=== PATIENT | female | born 1960 | race Caucasian/White ===

== ENCOUNTER → 2016-11-17 | Outpatient (CLI) | payer OTHER ==
[2016-11-12 12:53] VITALS: BP 125/67
[~2016-11-17] MED LIST: AMIO200T2 PO; APIX5TAB PO; ASPI-482 PO; ATOR10TA60 PO; BUME1TAB PO; DIGO125T PO; DILT180C29 PO; FURO40TA4 PO; HYDR12.58 PO; METO25TA4 PO; METO50TA29 PO; MULT1TAB52 PO; OMEG-57 PO; POTA10TA5 PO; PROAIR HFA8.5 GM INH; RIVA20TA2 PO
--- NOTE | 2016-11-18 15:31 | SLEEP ---
DATE OF STUDY: 11/17/2016 PRIMARY CARE PHYSICIAN: Dr. Carol Gutiérrez. REFERRING PHYSICIAN: Dr. Whitmore. Ms. Guerrero is 56 years old who weighs 290 pounds with a BMI of 50. The patient's [place] score was 8. The patient underwent a split night study at [facility]. During the night study, the patient spent 424 minutes in bed and slept for 321 minutes with a sleep efficiency of 76%. Sleep latency was 12 minutes with absence of REM sleep. Overall, sleep architecture showed normal stage I sleep, increased stage II sleep, normal slow wave and absent REM sleep. During the initial diagnostic portion of the study, the patient slept for 152 minutes. During this time, there were 8 obstructive apneas, no mixed or central apneas and 23 hypopneas. The patient's apnea-hypopnea index was 27 per hour, supine index 54 per hour and absent REM AHI due to lack of REM sleep. Review of nocturnal oximetry study revealed an average oxygen saturation of 95% with the lowest of 70%. 66% of time oxygen saturation remained between 80% and 89%. EKG monitoring was consistent with irregular rhythm. It was consistent with atrial fibrillation. The average heart rate was 127 beats per minute. PLMS were seen at index of 2 per hour and none caused EEG arousals. The patient met the criteria for CPAP initiation. It was started at 5 cm of water and titrated up to 15 cm of water. At the final pressure, the patient slept for 82 minutes. The patient had a lateral sleep and no supine or REM sleep. AHI was reduced to 1 per hour and oxygen saturations remained above 88% with one spot desaturation of 87%. The patient used a medium size full face mask. IMPRESSION: 1. Moderate sleep apnea-hypopnea syndrome at an AHI of 27 per hour. Absence of REM sleep can underestimate the severity of sleep apnea. 2. Nocturnal hypoxia, secondary to obstructive sleep apnea and suspected obesity hypoventilation syndrome. Hypoxia was corrected with final CPAP pressure. 3. Abnormal EKG with atrial fibrillation with suboptimal rate control. The patient's average heart rate was 127 beats per minute. 4. No clinically significant PLMS. RECOMMENDATIONS: 1. CPAP at 15 cm water completely eliminated patient's sleep apnea and should be used on a nightly basis. 2. Follow up in 4-6 weeks to assess compliance with CPAP and to document clinical improvement. 3. Weight loss is strongly advised. 4. Avoid AGRICULTURE TEACHER depressants. 5. Caution regarding driving until symptoms of sleep apnea resolve with the use of CPAP. 6. I would recommend Cardiology followup regarding atrial fibrillation with suboptimal rate control. NGOC CORDOVA MD DR: KAT/hali JOB#: [id number] / [id number] EVANGELINA West APRN, SABATO MD
== END | disposition home or self-care (01) ==
LOC: SLPLAB 18:40
PROVIDERS: ATTEND Internal Medicine Critical Care Medicine
DX: G47.33 Obstructive sleep apnea (adult) (pediatric) (principal)
CPT/HCPCS: 95810

== ENCOUNTER 2016-12-30 00:07 | Inpatient (IN) | payer OTHER ==
[~2016-12-30] VITALS: Ht 160 cm; Wt 116.2 kg
[2016-12-30] VITALS (14 sets, daily range): BP systolic 78–115; BP diastolic 47–71
[2016-12-30] MEDS ORDERED: AMIO200T2 PO (02:12)
[2016-12-30] MEDS ORDERED: ATOR10TA60 PO (02:12)
[2016-12-30] MEDS ORDERED: BUME2TAB PO (02:12)
[2016-12-30] MEDS ORDERED: ASPI-630 PO (02:12)
[2016-12-30] MEDS ORDERED: MULT1TAB52 PO (02:12)
[2016-12-30] MEDS ORDERED: POTA10TA5 PO (02:12)
[2016-12-30] MEDS ORDERED: DIGO125T PO (02:12)
[2016-12-30] MEDS ORDERED: FERR-26 PO (02:12)
[2016-12-30] MEDS ORDERED: RIVA20TA2 PO (02:12)
[2016-12-30] MEDS ORDERED: OMEG1CAP6 PO (02:12)
[2016-12-30] MEDS ORDERED: DILT180C2 PO (02:12)
[2016-12-30] MEDS ORDERED: METO-247 PO (02:17)
[2016-12-30] MEDS ORDERED: NON FORMULARY ITEM (Albuterol Sulfate (Proair Hfa Inhaler) 1 PUFF) INH PRN (03:15)
[2016-12-30] MEDS ORDERED: ACETAMINOPHEN 325 MG TABLET. PO PRN (03:15)
[2016-12-30] MEDS ORDERED: fentaNYL PF VIAL 100 MCG/2 ML VIAL IV PRN ×2 (03:15)
[2016-12-30 08:12] LABS: BASO % 0 % (0-3); EOS % 0 % (0-3); LYMPH % 15 % (24-48); MEAN CORPUSCULAR HEMOGLOBIN 31 pg (25-35); MEAN CORPUSCULAR HGB CONC 33 g/dL (31-37); MEAN CORPUSCULAR VOLUME 94 fL (79-100); MONO % 12 % (0-9); NEUT % 72 % (31-73); PLATELET COUNT 230 x10^3/uL (140-400); RED BLOOD COUNT 1.87 x10^6/uL (3.50-5.40); WHITE BLOOD COUNT 13.1 x10^3/uL (4.0-11.0)
[2016-12-30 08:18] LABS: HEMATOCRIT 17.6 % (36.0-47.0); HEMOGLOBIN 5.9 g/dL (12.0-15.5)
[2016-12-30 08:24] LABS: CALCIUM 7.5 mg/dL (8.5-10.1); CREATININE 0.8 mg/dL (0.6-1.0); GFR 74.2; POTASSIUM 3.2 mmol/L (3.5-5.1)
[2016-12-30] MEDS: AMIODARONE HCL 200 MG TABLET. PO SCH (08:27)
[2016-12-30] MEDS: DIGOXIN 125 MCG TABLET. PO SCH (08:28)
[2016-12-30] MEDS: FERROUS SULFATE 325 MG TABLET. PO SCH (08:29)
[2016-12-30] MEDS: OMEGA-3 FATTY ACIDS/FISH OIL 1,000 MG CAPSULE. PO SCH (08:29)
[2016-12-30] MEDS: MULTIVITAMIN with MINERAL TABLET. PO SCH (08:29)
[2016-12-30] MEDS: POTASSIUM CHLORIDE 10 MEQ TABLET.ER. PO SCH ×2 (08:29→17:05)
[2016-12-30] MEDS ORDERED: INFLUENZA VAX SCREEN BY RX. MC ONE (09:00)
[2016-12-30] MEDS ORDERED: FLU VACC QS2017-18 (36MOS+)/PF 0.5 ML SYRINGE. VAX IM ONE (09:00)
[2016-12-30] MEDS: ALBUTEROL SULFATE 2.5 MG/3 ML NEBU. NEB PRN (09:00)
[2016-12-30] MEDS: BUMETANIDE 1 MG TABLET. PO SCH ×2 (09:00→15:46)
[2016-12-30] MEDS: ASPIRIN CHEWABLE 81 MG TABLET. PO SCH (09:00)
[2016-12-30] MEDS ORDERED: METOPROLOL SUCC 24HR ER 50 MG TAB.ER.24H. PO SCH (09:00)
--- NOTE | 2016-12-30 10:18 | PDOC2 ---
RICHARDSON CORTEZ RADIOLOGY TECH 12/30/16 1018: CARDIAC CONSULT DATE OF CONSULT Date of Consult DATE: 12/30/16 TIME: 10:04 REASON FOR CONSULT Reason for Consult: AFIB REFERRING PHYSICIAN Referring Physician: Dr. Segovia SOURCE Source: Chart review, Patient HISTORY OF PRESENT ILLNESS HISTORY OF PRESENT ILLNESS This is a 56 yo female, known to us form outpatient clinic and previous hospitalizations, who initially presented to [facility] secondary to weakness and fall. . Was unable to get up and was experiencing left knee pain. Has been weak for the last couple of days with some intermittent dizziness. Denies any chest pain, palpitations, diaphoresis, SOA, or nausea/vomiting. No fevers/illness. Was seen yesterday due to vaginal bleeding x approximately 3 weeks. US shows endometrial thickening. Is on Xarelto for AFIB. Anemia felt to be due to acute blood loss secondary to vaginal bleeding and was transferred to [facility] for REGISTERED MASSAGE THERAPIST evaluation. PAST MEDICAL HISTORY Past Medical History Cardiovascular: HTN, Hyperlipidemia, CHF, NICM, AFIB CENTRAL NERVOUS SYSTEM: Other (No pertinent history) GI: No pertinent hx Heme/Onc: No pertinent hx Hepatobiliary: No pertinent hx Psych: No pertinent hx Musculoskeletal: Osteoarthritis, Other (morbid obesity) Rheumatologic: No pertinent hx Infectious disease: No pertinent hx ENT: Allergic Rhinitis Renal/: Urinary Incontinence Endocrine: No pertinent hx Dermatology: No pertinent hx PAST SURGICAL HISTORY Past Surgical History (x2), Total knee replacement (right and left 2015), cardiac cath, cardioversion FAMILY HISTORY Family History noncontributory SOCIAL HISTORY Social History Smoke: No ALCOHOL: none Drugs: None Lives: with Family CURRENT MEDICATIONS CURRENT MEDICATIONS Current Medications Medications (Trade) Dose Ordered Sig/Dominga Route PRN Reason Start Time Stop Time Status Last Admin Dose Admin Amiodarone HCl (Cordarone) 200 mg DAILY PO 12/30/16 09:00 12/30/16 08:27 Digoxin (Lanoxin) 125 mcg DAILY PO 12/30/16 09:00 12/30/16 08:28 Diltiazem HCl (Cardizem 24hr Cd) 180 mg DAILY PO 12/30/16 09:00 12/30/16 08:28 Ferrous Sulfate (Feosol) 325 mg DAILY PO 12/30/16 09:00 12/30/16 08:29 Metoprolol Succinate (Toprol Xl) 50 mg DAILY PO 12/30/16 09:00 12/30/16 08:48 Fish Oil (Fish Oil) 1,000 mg DAILY PO 12/30/16 09:00 12/30/16 08:29 Multivitamins (Thera M Plus) 1 tab DAILY PO 12/30/16 09:00 12/30/16 08:29 Potassium Chloride (Klor-Con) 20 meq BIDWMEALS PO 12/30/16 08:00 12/30/16 08:29 Albuterol Sulfate (Ventolin Neb Soln) 2.5 mg PRN Q4HRS PRN NEB SHORTNESS OF BREATH 12/30/16 04:00 12/30/16 09:00 ALLERGIES ALLERGIES: Coded Allergies: No Known Drug Allergies (Unverified , 09/07/16) ROS Review of System 14 point ROS conducted with pertinent positives noted above in HPI. PHYSICAL EXAM PHYSICAL EXAM General: Alert, Oriented X3, Cooperative, No acute distress HEENT: Atraumatic, Mucous membr. moist/pink Lungs: CTA, diminished bases Heart: Normal S1, Normal S2, Other (IRRR- AFIB, rate 95-110) Abdomen: Soft, No tenderness, Other (morbid obesity) Extremities: No cyanosis, No edema, No tenderness/swelling Skin: No breakdown, No significant lesion, no significant edema Neuro: Normal speech, Sensation intact Psych/Mental Status: Mental status NL, Mood NL MUSCULOSKELETAL: Osteoarthritic changes both hands VITALS VITALS Vital Signs Date Time Temp Pulse Resp B/P (MAP) Pulse Ox O2 Delivery O2 Flow Rate FiO2 12/30/16 09:00 97 Room Air 12/30/16 08:48 100 107/55 12/30/16 07:00 97.7 20 97.7 LABS Lab: Laboratory Tests Test 12/30/16 07:55 White Blood Count 13.1 x10^3/uL (4.0-11.0) Red Blood Count 1.87 x10^6/uL (3.50-5.40) Hemoglobin 5.9 g/dL (12.0-15.5) Hematocrit 17.6 % (36.0-47.0) Mean Corpuscular Volume 94 fL (79-100) Mean Corpuscular Hemoglobin 31 pg (25-35) Mean Corpuscular Hemoglobin Concent 33 g/dL (31-37) Red Cell Distribution Width 15.0 % (11.5-14.5) Platelet Count 230 x10^3/uL (140-400) Neutrophils (%) (Auto) 72 % (31-73) Lymphocytes (%) (Auto) 15 % (24-48) Monocytes (%) (Auto) 12 % (0-9) Eosinophils (%) (Auto) 0 % (0-3) Basophils (%) (Auto) 0 % (0-3) Neutrophils # (Auto) 9.5 x10^3uL (1.8-7.7) Lymphocytes # (Auto) 2.0 x10^3/uL (1.0-4.8) Monocytes # (Auto) 1.5 x10^3/uL (0.0-1.1) Eosinophils # (Auto) 0.1 x10^3/uL (0.0-0.7) Basophils # (Auto) 0.0 x10^3/uL (0.0-0.2) Sodium Level 140 mmol/L (136-145) Potassium Level 3.2 mmol/L (3.5-5.1) Chloride Level 101 mmol/L (98-107) Carbon Dioxide Level 32 mmol/L (21-32) Anion Gap 7 (6-14) Blood Urea Nitrogen 21 mg/dL (7-20) Creatinine 0.8 mg/dL (0.6-1.0) Estimated GFR (Cockcroft-Gault) 74.2 Glucose Level 97 mg/dL (70-99) Calcium Level 7.5 mg/dL (8.5-10.1) ECHOCARDIOGRAM ECHOCARDIOGRAM TTE DATE: 09/08/16 1050 <Conclusion> Left ventricle systolic function is moderately impaired. The Ejection Fraction is 20%. Septal motion consistent with conduction abnormality. There is severe global hypokinesis of the left ventricle. Difficulty estimating wall motion due to tachycardia. JULIETH DATE: 09/09/16 1506 <Conclusion> Left ventricle systolic function is severely impaired. The Ejection Fraction is 20-25%. Septal motion consistent with conduction abnormality. There is global hypokinesis of the left ventricle. There is no thrombus noted in the left atrial appendage. Unsuccessful CVN - persistent atrial fibrillation despite two attempts. STRESS TEST STRESS TEST Conclusion 1. No evidence of stress induced EKG changes (Baseline afib with RVR) 2. Small reversible apical perfusion defect. 3. Severe LV dysfunction. EF 35% 4. Moderate to high risk study DATE: 09/10/16 1249 HEART CATH HEART CATH Conclusion 1. Mild to moderately elevated filling pressures. LVEDP 24 mm Hg 2. Normal angiographic appearance of the coronary arteries. Recommendations Aggressive Medical Therapy DATE: 09/13/16 1110 ASSESSMENT/PLAN ASSESSMENT/PLAN 1. AFIB 2. Acute blood loss anemia secondary to prolonged vaginal bleeding 3. Chronic systolic HF with NICM; LVEF 20-25%; clinically well-compensated 4. Hypertension 5. Hyperlipidemia 6. Morbid obesity 7. Hypokalemia Recommendation Continue Dig, Amiodarone, and metoprolol for rate/rhythm control. Discontinue Cardizem due to severe CMP. Hold ASA and Eliquis due to ongoing vaginal bleeding Transfusion ordered. If further transfusions required, may need diuresis between units. Monitor fluid status closely Supportive care Problems: COLETTE STONE MD 12/30/16 2205: CARDIAC CONSULT ALLERGIES ALLERGIES: Coded Allergies: No Known Drug Allergies (Unverified , 09/07/16) ASSESSMENT/PLAN ASSESSMENT/PLAN Pt. seen and examined. Agree with above CASTING CHIPPER note. Await ladle puller eval. ok to stop anticoagulation Rate control as above. Will follow along. Problems: RICHARDSON CORTEZ APRN Dec 30, 2016 10:18 COLETTE STONE MD Dec 30, 2016 22:05
[2016-12-30] MEDS ORDERED: POTASSIUM CHLORIDE 20 MEQ TABLET.ER. PO ONE (11:45)
[2016-12-30 16:36] LABS: RED BLOOD COUNT 2.09 x10^6/uL (3.50-5.40); RED CELL DISTRIBUTION WIDTH 14.8 % (11.5-14.5); WHITE BLOOD COUNT 11.8 x10^3/uL (4.0-11.0)
[2016-12-30 16:41] LABS: HEMATOCRIT 19.9 % (36.0-47.0); HEMOGLOBIN 6.7 g/dL (12.0-15.5)
--- NOTE | 2016-12-30 17:45 | HP ---
ADMIT DATE: 12/30/2016 CHIEF COMPLAINT: Vaginal bleeding. HISTORY OF PRESENT ILLNESS: The patient is a 56-year-old obese woman, well known to our service with multiple cardiac issues, who presented to [facility] with weakness and fall. She apparently had been unable to get up after her fall during which she had experienced left knee pain. She relates that she had been feeling weak for a couple of weeks with intermittent dizziness. Last week, she started significant vaginal bleeding, which was unusual for her. She presented to the hospital at [facility] when ultrasound showed endometrial thickening. Her Xarelto for AFib was held and she was transferred to [facility] for evaluation by gynecology. PAST MEDICAL HISTORY: Atrial fibrillation, CHF, nonischemic cardiomyopathy, urinary incontinence, osteoarthritis, hypertension, hyperlipidemia. PAST SURGICAL HISTORY: Cardiac catheterization, cardioversion, total knee replacements and x 2. FAMILY HISTORY: Denies any heart or lung disease. SOCIAL HISTORY: , living with her . No toxic habits. ALLERGIES: No known drug allergies. MEDICATIONS: MAR reconciled with home meds. REVIEW OF SYSTEMS: Essentially only positive as per HPI. Breathing has significantly slowed down. She denies any abdominal pain at this time. She is distraught about being in the hospital once again. She relates she lost about 60 pounds since her most recent admission in November. PHYSICAL EXAMINATION: VITAL SIGNS: From today show a blood pressure of 102/69, heart rate of 90, respiratory rate at 20. She is afebrile. GENERAL: This is a morbidly obese 56-year-old woman, alert and oriented, in no acute distress, pale appearing. HEENT: Shows no scleral icterus. Oral mucosa is pink and moist. NECK: Supple. LUNGS: Clear. HEART: Slightly tachycardic, irregular. ABDOMEN: Has positive bowel sounds, soft, no tenderness to palpation. EXTREMITIES: Show no edema. SKIN: Warm, soft and dry. LABORATORY DATA: CBC with a WBC of 13.1, hemoglobin 5.9, platelets of 230. Chemistries with a BUN and creatinine of 21 and 0.8, potassium at 3.2, calcium 7.5. ASSESSMENT AND PLAN: The patient is a 56-year-old woman with significant heart issues, who now presents with abnormal postmenopausal bleeding. She is admitted with significant anemia. We will start transfusing her 1 unit at a time cautiously given history of CHF. Goal would be hemoglobin of greater than 7-8. Bleeding clearly is abnormal. Ultrasound did not reveal any masses, but widened endometrial stripe. We will obtain a consult with gynecology for further evaluation and treatment. ____, from a cardiac standpoint, she appears perfectly stable. We will continue her current home medications. JOSELUIS GAUTHIER MD DR: BIN/nts JOB#: [id number] / [id number] EVANGELINA West APRN
--- NOTE | 2016-12-30 18:02 | PDOC2 ---
CONSULT Date of Consult Date of Consult DATE: 12/30/16 TIME: 17:55 Reason for Consult Reason for Consult: vaginal bleeding Referring Physician Referring Physician: Dr. Solo Identification/Chief Complaint Chief Complaint vaginal bleeding for 3 weeks. Problems: Source Source: Chart review, Patient History of Present Illness Reason for Visit: 56 y/o presented to ED with c/o vaginal bleeding for past 3 weeks with passage of large blood clots. Her menses are infrequent with the last menses 6 months ago. Her mother became menopausal at age 62. Pt. is on anti-platelette medication as well. Past Medical History Cardiovascular: HTN, Hyperlipidemia CENTRAL NERVOUS SYSTEM: Other GI: No pertinent hx Heme/Onc: No pertinent hx Hepatobiliary: No pertinent hx Psych: No pertinent hx Musculoskeletal: Osteoarthritis, Other Rheumatologic: No pertinent hx Infectious disease: No pertinent hx Renal/: Urinary Incontinence Endocrine: No pertinent hx Past Surgical History Past Surgical History: , Total knee replacement Family History Family History: Other Social History ALCOHOL: none Drugs: None Lives: with Family Current Medications Current Medications Current Medications Fentanyl Citrate (Fentanyl 2ml Vial) 25 mcg PRN Q2HR PRN IV PAIN; Start at 03:15 Fentanyl Citrate (Fentanyl 2ml Vial) 50 mcg PRN Q2HR PRN IV PAIN; Start at 03:15 Amiodarone HCl (Cordarone) 200 mg DAILY PO Last administered on 12/30/16 08: 27; Start 12/30/16 at 09:00 Aspirin (Children'S Aspirin) 81 mg DAILY PO ; Start 12/30/16 at 09:00 Atorvastatin Calcium (Lipitor) 10 mg HS PO ; Start 12/30/16 at 21:00 Digoxin (Lanoxin) 125 mcg DAILY PO Last administered on 12/30/16 08:28; Start 12/30/16 at 09:00 Diltiazem HCl (Cardizem 24hr Cd) 180 mg DAILY PO Last administered on 08:28; Start 12/30/16 at 09:00; Stop 12/30/16 at 11:49; Status DC Ferrous Sulfate (Feosol) 325 mg DAILY PO Last administered on 12/30/16 08:29 ; Start 12/30/16 at 09:00 Metoprolol Succinate (Toprol Xl) 50 mg DAILY PO Last administered on 08:48; Start 12/30/16 at 09:00; Stop 12/30/16 at 11:49; Status DC Fish Oil (Fish Oil) 1,000 mg DAILY PO Last administered on 12/30/16 08:29; Start 12/30/16 at 09:00 Non-Formulary Medication 1 puff PRN Q4HRS PRN INH SHORTNESS OF BREATH; Start 12/30/16 at 03:15; Status UNV Bumetanide (Bumex) 2 mg DAILY PO Last administered on 12/30/16 15:46; Start 12/30/16 at 09:00 Multivitamins (Thera M Plus) 1 tab DAILY PO Last administered on 12/30/16 08: 29; Start 12/30/16 at 09:00 Potassium Chloride (Klor-Con) 20 meq BIDWMEALS PO Last administered on 17:05; Start 12/30/16 at 08:00 Acetaminophen (Tylenol) 650 mg PRN Q6HRS PRN PO PAIN; Start 12/30/16 at 03:15 Albuterol Sulfate (Ventolin Neb Soln) 2.5 mg PRN Q4HRS PRN NEB SHORTNESS OF BREATH Last administered on 12/30/16 09:00; Start 12/30/16 at 04:00 Info (Do NOT chart on this placeholder) 1 each 1X ONCE MC ; Start 12/30/16 at 09:00; Stop 12/30/16 at 09:01; Status UNV Influenza Virus Vaccine Quadrival (Fluarix Quad [id number] Syringe) 0.5 ml ONCE ONCE VAX IM ; Start 12/30/16 at 09:00; Stop 12/30/16 at 09:01; Status DC Potassium Chloride (Klor-Con) 40 meq 1X ONCE PO Last administered on 14:04; Start 12/30/16 at 11:45; Stop 12/30/16 at 11:46; Status DC Metoprolol Succinate (Toprol Xl) 75 mg DAILY PO ; Start 12/31/16 at 09:00 Active Scripts Active Reported Metoprolol Succinate ( Xl ) (Metoprolol Succinate) 100 Mg Tab.er.24h 0.5 Tab PO DAILY Ferrous Sulfate 325 Mg Tablet 1 Tab PO DAILY Xarelto (Rivaroxaban) 20 Mg Tablet 20 Mg PO HS Multivitamins (Multivitamin) 1 Each Tablet 1 Tab PO DAILY Fish Oil 1,000 Mg Capsule ([place]orne-3 Fatty Acids/Fish Oil) 1 Each Capsule 1 Each PO DAILY Digoxin 125 Mcg Tablet 1 Tab PO DAILY Cardizem Cd (Diltiazem Hcl) 180 Mg Cap.er.24h 1 Cap PO DAILY Bumetanide 2 Mg Tablet 1 Tab PO DAILY Atorvastatin Calcium 10 Mg Tablet 1 Tab PO HS Aspirin 81 Mg Tab.chew 1 Tab PO DAILY Amiodarone Hcl 200 Mg Tablet 1 Tab PO DAILY Klor-Con 10 (Potassium Chloride) 10 Meq Tablet.er 2 Tab PO BID Proair Hfa Inhaler (Albuterol Sulfate) 8.5 Gm Hfa.aer.ad 1 Puff INH PRN Q4HRS PRN Allergies Allergies: Coded Allergies: No Known Drug Allergies (Unverified , 09/07/16) ROS General: YES: Fatigue, Malaise, No: Chills, Night Sweats, Appetite, Other PSYCHOLOGICAL ROS: YES: Anxiety, No: Behavioral Disorder, Concentration difficultie, Decreased libido, Depression, Disorientation, Hallucinations, Hostility, Irritablity, Memory difficulties, Mood Swings, Obsessive thoughts, Physical abuse, Sexual abuse, Sleep disturbances, Suicidal ideation, Other Eyes: No Blurry vision, No Decreased vision, No Double vision, No Dry eyes, No Excessive tearing, No Eye Pain, No Itchy Eyes, No Loss of vision, No Photophobia , No Scotomata, No Uses contacts, No Uses glasses, No Other HEENT: No: Heacaches, Visual Changes, Hearing change, Nasal congestion, Nasal discharge, Oral lesions, Sinus pain, Sore Throat, Epistaxis, Sneezing, Snoring, Tinnitus, Vertigo, Vocal changes, Other ALLERGY AND IMMUNOLOGY: No: Hives, Insect Bite Sensitivity, Itchy/Watery Eyes, Nasal Congestion, Post Nasal Drip, Seasonal Allergies, Other Hematological and Lymphatic: No: Bleeding Problems, Blood Clots, Blood Transfusions, Brusing, Night Sweats, Pallor, Swollen Lymph Nodes, Other ENDOCRINE: No: Breast Changes, Galactorrhea, Hair Pattern Changes, Hot Flashes , Malaise/lethargy, Mood Swings, Palpitations, Polydipsia/polyuria, Skin Changes , Temperature Intolerance, Unexpected Weight Changes, Other Breast: No New/Changing Breast Lumps, No Nipple changes, No Nipple discharge, No Other Respiratory: No: Cough, Hemoptysis, Orthopnea, Pleuritic Pain, Shortness of breath, SOB with excertion, Sputum Changes, Stridor, Tachypnea, Wheezing, Other Cardiovascular: No Chest Pain, No Palpitations, No Orthopnea, No Paroxysmal Noc. Dyspnea, No Edema, No Lt Headedness, No Other Gastrointestinal: No Nausea, No Vomiting, No Abdominal Pain, No Diarrhea, No Constipation, No Melena, No Hematochezia, No Other Genitourinary: No Dysuria, No Frequency, No Incontinence, No Hematuria, No Retention, No Discharge, No Urgency, No Pain, No Flank Pain, No Other, No , No , No , No , No , No , No Musculoskeletal: No Gait Disturbance, No Joint Pain, No Joint Stiffness, No Joint Swelling, No Muscle Pain, No Muscular Weakness, No Pain In:, No Swelling In:, No Other Physical Exam General: Alert, Oriented X3, Cooperative HEENT: Atraumatic Lungs: Clear to auscultation Heart: Regular rate Abdomen: Normal bowel sounds, Soft, No tenderness, No masses Vitals VITALS Vital Signs Date Time Temp Pulse Resp B/P (MAP) Pulse Ox O2 Delivery O2 Flow Rate FiO2 12/30/16 17:16 98.0 100 20 108/55 98.0 12/30/16 15:00 98 Room Air Labs Labs Laboratory Tests Test 12/30/16 07:55 12/30/16 16:09 White Blood Count 13.1 x10^3/uL (4.0-11.0) 11.8 x10^3/uL (4.0-11.0) Red Blood Count 1.87 x10^6/uL (3.50-5.40) 2.09 x10^6/uL (3.50-5.40) Hemoglobin 5.9 g/dL (12.0-15.5) 6.7 g/dL (12.0-15.5) Hematocrit 17.6 % (36.0-47.0) 19.9 % (36.0-47.0) Mean Corpuscular Volume 94 fL (79-100) 95 fL (79-100) Mean Corpuscular Hemoglobin 31 pg (25-35) 32 pg (25-35) Mean Corpuscular Hemoglobin Concent 33 g/dL (31-37) 34 g/dL (31-37) Red Cell Distribution Width 15.0 % (11.5-14.5) 14.8 % (11.5-14.5) Platelet Count 230 x10^3/uL (140-400) 220 x10^3/uL (140-400) Neutrophils (%) (Auto) 72 % (31-73) Lymphocytes (%) (Auto) 15 % (24-48) Monocytes (%) (Auto) 12 % (0-9) Eosinophils (%) (Auto) 0 % (0-3) Basophils (%) (Auto) 0 % (0-3) Neutrophils # (Auto) 9.5 x10^3uL (1.8-7.7) Lymphocytes # (Auto) 2.0 x10^3/uL (1.0-4.8) Monocytes # (Auto) 1.5 x10^3/uL (0.0-1.1) Eosinophils # (Auto) 0.1 x10^3/uL (0.0-0.7) Basophils # (Auto) 0.0 x10^3/uL (0.0-0.2) Sodium Level 140 mmol/L (136-145) Potassium Level 3.2 mmol/L (3.5-5.1) Chloride Level 101 mmol/L (98-107) Carbon Dioxide Level 32 mmol/L (21-32) Anion Gap 7 (6-14) Blood Urea Nitrogen 21 mg/dL (7-20) Creatinine 0.8 mg/dL (0.6-1.0) Estimated GFR (Cockcroft-Gault) 74.2 Glucose Level 97 mg/dL (70-99) Calcium Level 7.5 mg/dL (8.5-10.1) Magnesium Level 2.0 mg/dL (1.8-2.4) Laboratory Tests Test 12/30/16 07:55 12/30/16 16:09 White Blood Count 13.1 x10^3/uL (4.0-11.0) 11.8 x10^3/uL (4.0-11.0) Red Blood Count 1.87 x10^6/uL (3.50-5.40) 2.09 x10^6/uL (3.50-5.40) Hemoglobin 5.9 g/dL (12.0-15.5) 6.7 g/dL (12.0-15.5) Hematocrit 17.6 % (36.0-47.0) 19.9 % (36.0-47.0) Mean Corpuscular Volume 94 fL (79-100) 95 fL (79-100) Mean Corpuscular Hemoglobin 31 pg (25-35) 32 pg (25-35) Mean Corpuscular Hemoglobin Concent 33 g/dL (31-37) 34 g/dL (31-37) Red Cell Distribution Width 15.0 % (11.5-14.5) 14.8 % (11.5-14.5) Platelet Count 230 x10^3/uL (140-400) 220 x10^3/uL (140-400) Neutrophils (%) (Auto) 72 % (31-73) Lymphocytes (%) (Auto) 15 % (24-48) Monocytes (%) (Auto) 12 % (0-9) Eosinophils (%) (Auto) 0 % (0-3) Basophils (%) (Auto) 0 % (0-3) Neutrophils # (Auto) 9.5 x10^3uL (1.8-7.7) Lymphocytes # (Auto) 2.0 x10^3/uL (1.0-4.8) Monocytes # (Auto) 1.5 x10^3/uL (0.0-1.1) Eosinophils # (Auto) 0.1 x10^3/uL (0.0-0.7) Basophils # (Auto) 0.0 x10^3/uL (0.0-0.2) Sodium Level 140 mmol/L (136-145) Potassium Level 3.2 mmol/L (3.5-5.1) Chloride Level 101 mmol/L (98-107) Carbon Dioxide Level 32 mmol/L (21-32) Anion Gap 7 (6-14) Blood Urea Nitrogen 21 mg/dL (7-20) Creatinine 0.8 mg/dL (0.6-1.0) Estimated GFR (Cockcroft-Gault) 74.2 Glucose Level 97 mg/dL (70-99) Calcium Level 7.5 mg/dL (8.5-10.1) Magnesium Level 2.0 mg/dL (1.8-2.4) Assessment/Plan Assessment/Plan A: AUB: sono indicated endometrial thickness of 2.4 cm Severe chronic blood loss anemia P: Counseled on AUB and sono results. Plan for endometrial biopsy tomorrow afternoon. Will then f/u in clinic. Thank you for consult. MONICA GAITAN Jr, MD Dec 30, 2016 18:02
[2016-12-30] MEDS: ATORVASTATIN CALCIUM 10 MG TABLET. PO SCH (21:16)
[2016-12-30 23:33] LABS: HEMATOCRIT 23.3 % (36.0-47.0); HEMOGLOBIN 7.8 g/dL (12.0-15.5); RED BLOOD COUNT 2.5 x10^6/uL (3.50-5.40); RED CELL DISTRIBUTION WIDTH 14.3 % (11.5-14.5); WHITE BLOOD COUNT 12.9 x10^3/uL (4.0-11.0)
[2016-12-31] VITALS (11 sets, daily range): BP systolic 95–126; BP diastolic 48–83
[2016-12-31 05:35] LABS: BASO # 0.1 x10^3/uL (0.0-0.2); BASO % 1 % (0-3); EOS % 1 % (0-3); HEMOGLOBIN 7.8 g/dL (12.0-15.5); LYMPH % 15 % (24-48); MEAN CORPUSCULAR HEMOGLOBIN 32 pg (25-35); MEAN CORPUSCULAR HGB CONC 34 g/dL (31-37); MEAN CORPUSCULAR VOLUME 94 fL (79-100); MONO % 11 % (0-9); NEUT % 72 % (31-73); PLATELET COUNT 234 x10^3/uL (140-400); RED BLOOD COUNT 2.44 x10^6/uL (3.50-5.40); RED CELL DISTRIBUTION WIDTH 14.7 % (11.5-14.5)
[2016-12-31 06:03] LABS: ALBUMIN 2.6 g/dL (3.4-5.0); ALBUMIN/GLOBULIN RATIO 0.7 (1.0-1.7); CALCIUM 9.1 mg/dL (8.5-10.1); CREATININE 0.7 mg/dL (0.6-1.0); GFR 86.6; POTASSIUM 3.4 mmol/L (3.5-5.1); TOTAL BILIRUBIN 0.5 mg/dL (0.2-1.0); TOTAL PROTEIN 6.3 g/dL (6.4-8.2)
[2016-12-31] MEDS: ALBUTEROL SULFATE 2.5 MG/3 ML NEBU. NEB PRN (07:57)
[2016-12-31] MEDS ORDERED: METOPROLOL SUCC 24HR ER 25 MG TAB.ER.24H. PO SCH (09:00)
[2016-12-31] MEDS: DIGOXIN 125 MCG TABLET. PO SCH ×2 (09:00→14:52)
[2016-12-31] MEDS: BUMETANIDE 1 MG TABLET. PO SCH (09:00)
[2016-12-31] MEDS: FERROUS SULFATE 325 MG TABLET. PO SCH (09:11)
[2016-12-31] MEDS: ASPIRIN CHEWABLE 81 MG TABLET. PO SCH (09:11)
[2016-12-31] MEDS: OMEGA-3 FATTY ACIDS/FISH OIL 1,000 MG CAPSULE. PO SCH (09:11)
[2016-12-31] MEDS: MULTIVITAMIN with MINERAL TABLET. PO SCH (09:12)
[2016-12-31] MEDS: AMIODARONE HCL 200 MG TABLET. PO SCH (09:12)
[2016-12-31] MEDS: POTASSIUM CHLORIDE 10 MEQ TABLET.ER. PO SCH ×2 (09:12→17:19)
--- NOTE | 2016-12-31 14:14 | PDOC ---
HAFSA KEITA CLINICAL EXERCISE PHYSIOLOGIST 12/31/16 1414: CARDIO Progress Notes Date and Time Date of Service 12/31/2016 Time of Evaluation 1330 Subjective Subjective: No Chest Pain, No shortness of breath, No Palpitations Vitals Vitals Vital Signs Date Time Temp Pulse Resp B/P (MAP) Pulse Ox O2 Delivery O2 Flow Rate FiO2 12/31/16 11:07 98.2 67 18 95/63 (74) 97 Room Air 98.2 Weight Weight [ ] Laboratory Labs Laboratory Tests Test 12/30/16 16:09 12/30/16 22:35 12/31/16 05:00 White Blood Count 11.8 x10^3/uL (4.0-11.0) 12.9 x10^3/uL (4.0-11.0) 13.0 x10^3/uL (4.0-11.0) Red Blood Count 2.09 x10^6/uL (3.50-5.40) 2.50 x10^6/uL (3.50-5.40) 2.44 x10^6/uL (3.50-5.40) Hemoglobin 6.7 g/dL (12.0-15.5) 7.8 g/dL (12.0-15.5) 7.8 g/dL (12.0-15.5) Hematocrit 19.9 % (36.0-47.0) 23.3 % (36.0-47.0) 23.0 % (36.0-47.0) Mean Corpuscular Volume 95 fL (79-100) 93 fL (79-100) 94 fL (79-100) Mean Corpuscular Hemoglobin 32 pg (25-35) 31 pg (25-35) 32 pg (25-35) Mean Corpuscular Hemoglobin Concent 34 g/dL (31-37) 34 g/dL (31-37) 34 g/dL (31-37) Red Cell Distribution Width 14.8 % (11.5-14.5) 14.3 % (11.5-14.5) 14.7 % (11.5-14.5) Platelet Count 220 x10^3/uL (140-400) 229 x10^3/uL (140-400) 234 x10^3/uL (140-400) Neutrophils (%) (Auto) 72 % (31-73) Lymphocytes (%) (Auto) 15 % (24-48) Monocytes (%) (Auto) 11 % (0-9) Eosinophils (%) (Auto) 1 % (0-3) Basophils (%) (Auto) 1 % (0-3) Neutrophils # (Auto) 9.3 x10^3uL (1.8-7.7) Lymphocytes # (Auto) 2.0 x10^3/uL (1.0-4.8) Monocytes # (Auto) 1.5 x10^3/uL (0.0-1.1) Eosinophils # (Auto) 0.2 x10^3/uL (0.0-0.7) Basophils # (Auto) 0.1 x10^3/uL (0.0-0.2) Sodium Level 143 mmol/L (136-145) Potassium Level 3.4 mmol/L (3.5-5.1) Chloride Level 103 mmol/L (98-107) Carbon Dioxide Level 32 mmol/L (21-32) Anion Gap 8 (6-14) Blood Urea Nitrogen 10 mg/dL (7-20) Creatinine 0.7 mg/dL (0.6-1.0) Estimated GFR (Cockcroft-Gault) 86.6 BUN/Creatinine Ratio 14 (6-20) Glucose Level 68 mg/dL (70-99) Calcium Level 9.1 mg/dL (8.5-10.1) Total Bilirubin 0.5 mg/dL (0.2-1.0) Aspartate Amino Transf (AST/SGOT) 25 U/L (15-37) Alanine Aminotransferase (ALT/SGPT) 21 U/L (14-59) Alkaline Phosphatase 68 U/L (46-116) Total Protein 6.3 g/dL (6.4-8.2) Albumin 2.6 g/dL (3.4-5.0) Albumin/Globulin Ratio 0.7 (1.0-1.7) Physical Exam HEENT: Neck Supple W Full Motion Chest: Symmetric LUNGS: Clear to Auscultation Heart: S1S2, irregularly irregular (AFIB) Abdomen: Soft N/T Extremities: No Calf Tenderness, Other (trace LE edema) Neurology: alert, oriented, follow commands Assessment Assessment 1. AFIB: HR in the 120s this am mainly due to refusal of toprol due to low BP. 2. Acute blood loss anemia secondary to prolonged vaginal bleeding: RESIDENTIAL TEAM LEADER following. Post transfusion 3. Chronic systolic HF with NICM; LVEF 20-25%: compensated. 4. Hypertension 5. Hyperlipidemia 6. Morbid obesity 7. Hypokalemia Recommendation 1. Continue Dig, Amiodarone, and metoprolol for rate/rhythm control. SBP in the 90s ok. Discussed with pt in regards to toprol and will decrease for now. 2. Hold ASA and Eliquis due to ongoing vaginal bleeding Hgb 7.8. Possble endometrial bx this PM 3. Replace K as warranted 4. Supportive care COLETTE STONE MD 12/31/16 8646: CARDIO Progress Notes Plan Plan Pt. seen and examined. Discussed her afib. Hold anticoagulation until PROGRAM STRATEGIST issues resolved. Home on metop/amio/dig. Supportive care from CV perspective Will f/u in the office in 2 weeks. She needs clearance from PROGRAM STRATEGIST about when she may leave the hospital and await stable Hgb. Thanks. HAFSA KEITA APRN Dec 31, 2016 14:14 COLETTE STONE MD Dec 31, 2016 16:56
--- NOTE | 2016-12-31 14:44 | PDOC ---
SURGICAL PROGRESS NOTE Subjective Pt. continues to pass blood clots periodically. She was counseled on endometrial biopsy. Vital Signs Vital Signs Date Time Temp Pulse Resp B/P (MAP) Pulse Ox O2 Delivery O2 Flow Rate FiO2 12/31/16 11:07 98.2 67 18 95/63 (74) 97 Room Air 98.2 PATIENT HAS A DUNHAM: Yes General: Alert, Oriented X3, Cooperative HEENT: Atraumatic Lungs: Clear to auscultation Heart: Regular rate Abdomen: Normal bowel sounds, Soft, Other (Pelvic: cervix cleansed. Embx completed) Psych/Mental Status: Mental status NL Labs Laboratory Tests Test 12/30/16 07:55 12/30/16 16:09 12/30/16 22:35 12/31/16 05:00 White Blood Count 13.1 x10^3/uL (4.0-11.0) 11.8 x10^3/uL (4.0-11.0) 12.9 x10^3/uL (4.0-11.0) 13.0 x10^3/uL (4.0-11.0) Red Blood Count 1.87 x10^6/uL (3.50-5.40) 2.09 x10^6/uL (3.50-5.40) 2.50 x10^6/uL (3.50-5.40) 2.44 x10^6/uL (3.50-5.40) Hemoglobin 5.9 g/dL (12.0-15.5) 6.7 g/dL (12.0-15.5) 7.8 g/dL (12.0-15.5) 7.8 g/dL (12.0-15.5) Hematocrit 17.6 % (36.0-47.0) 19.9 % (36.0-47.0) 23.3 % (36.0-47.0) 23.0 % (36.0-47.0) Mean Corpuscular Volume 94 fL (79-100) 95 fL (79-100) 93 fL (79-100) 94 fL ( 79-100) Mean Corpuscular Hemoglobin 31 pg (25-35) 32 pg (25-35) 31 pg (25-35) 32 pg ( 25-35) Mean Corpuscular Hemoglobin Concent 33 g/dL (31-37) 34 g/dL (31-37) 34 g/dL (31-37) 34 g/dL (31-37) Red Cell Distribution Width 15.0 % (11.5-14.5) 14.8 % (11.5-14.5) 14.3 % (11.5-14.5) 14.7 % (11.5-14.5) Platelet Count 230 x10^3/uL (140-400) 220 x10^3/uL (140-400) 229 x10^3/uL (140-400) 234 x10^3/uL (140-400) Neutrophils (%) (Auto) 72 % (31-73) 72 % (31-73) Lymphocytes (%) (Auto) 15 % (24-48) 15 % (24-48) Monocytes (%) (Auto) 12 % (0-9) 11 % (0-9) Eosinophils (%) (Auto) 0 % (0-3) 1 % (0-3) Basophils (%) (Auto) 0 % (0-3) 1 % (0-3) Neutrophils # (Auto) 9.5 x10^3uL (1.8-7.7) 9.3 x10^3uL (1.8-7.7) Lymphocytes # (Auto) 2.0 x10^3/uL (1.0-4.8) 2.0 x10^3/uL (1.0-4.8) Monocytes # (Auto) 1.5 x10^3/uL (0.0-1.1) 1.5 x10^3/uL (0.0-1.1) Eosinophils # (Auto) 0.1 x10^3/uL (0.0-0.7) 0.2 x10^3/uL (0.0-0.7) Basophils # (Auto) 0.0 x10^3/uL (0.0-0.2) 0.1 x10^3/uL (0.0-0.2) Sodium Level 140 mmol/L (136-145) 143 mmol/L (136-145) Potassium Level 3.2 mmol/L (3.5-5.1) 3.4 mmol/L (3.5-5.1) Chloride Level 101 mmol/L (98-107) 103 mmol/L (98-107) Carbon Dioxide Level 32 mmol/L (21-32) 32 mmol/L (21-32) Anion Gap 7 (6-14) 8 (6-14) Blood Urea Nitrogen 21 mg/dL (7-20) 10 mg/dL (7-20) Creatinine 0.8 mg/dL (0.6-1.0) 0.7 mg/dL (0.6-1.0) Estimated GFR (Cockcroft-Gault) 74.2 86.6 Glucose Level 97 mg/dL (70-99) 68 mg/dL (70-99) Calcium Level 7.5 mg/dL (8.5-10.1) 9.1 mg/dL (8.5-10.1) Magnesium Level 2.0 mg/dL (1.8-2.4) BUN/Creatinine Ratio 14 (6-20) Total Bilirubin 0.5 mg/dL (0.2-1.0) Aspartate Amino Transf (AST/SGOT) 25 U/L (15-37) Alanine Aminotransferase (ALT/SGPT) 21 U/L (14-59) Alkaline Phosphatase 68 U/L (46-116) Total Protein 6.3 g/dL (6.4-8.2) Albumin 2.6 g/dL (3.4-5.0) Albumin/Globulin Ratio 0.7 (1.0-1.7) Laboratory Tests Test 12/30/16 16:09 12/30/16 22:35 12/31/16 05:00 White Blood Count 11.8 x10^3/uL (4.0-11.0) 12.9 x10^3/uL (4.0-11.0) 13.0 x10^3/uL (4.0-11.0) Red Blood Count 2.09 x10^6/uL (3.50-5.40) 2.50 x10^6/uL (3.50-5.40) 2.44 x10^6/uL (3.50-5.40) Hemoglobin 6.7 g/dL (12.0-15.5) 7.8 g/dL (12.0-15.5) 7.8 g/dL (12.0-15.5) Hematocrit 19.9 % (36.0-47.0) 23.3 % (36.0-47.0) 23.0 % (36.0-47.0) Mean Corpuscular Volume 95 fL (79-100) 93 fL (79-100) 94 fL (79-100) Mean Corpuscular Hemoglobin 32 pg (25-35) 31 pg (25-35) 32 pg (25-35) Mean Corpuscular Hemoglobin Concent 34 g/dL (31-37) 34 g/dL (31-37) 34 g/dL (31-37) Red Cell Distribution Width 14.8 % (11.5-14.5) 14.3 % (11.5-14.5) 14.7 % (11.5-14.5) Platelet Count 220 x10^3/uL (140-400) 229 x10^3/uL (140-400) 234 x10^3/uL (140-400) Neutrophils (%) (Auto) 72 % (31-73) Lymphocytes (%) (Auto) 15 % (24-48) Monocytes (%) (Auto) 11 % (0-9) Eosinophils (%) (Auto) 1 % (0-3) Basophils (%) (Auto) 1 % (0-3) Neutrophils # (Auto) 9.3 x10^3uL (1.8-7.7) Lymphocytes # (Auto) 2.0 x10^3/uL (1.0-4.8) Monocytes # (Auto) 1.5 x10^3/uL (0.0-1.1) Eosinophils # (Auto) 0.2 x10^3/uL (0.0-0.7) Basophils # (Auto) 0.1 x10^3/uL (0.0-0.2) Sodium Level 143 mmol/L (136-145) Potassium Level 3.4 mmol/L (3.5-5.1) Chloride Level 103 mmol/L (98-107) Carbon Dioxide Level 32 mmol/L (21-32) Anion Gap 8 (6-14) Blood Urea Nitrogen 10 mg/dL (7-20) Creatinine 0.7 mg/dL (0.6-1.0) Estimated GFR (Cockcroft-Gault) 86.6 BUN/Creatinine Ratio 14 (6-20) Glucose Level 68 mg/dL (70-99) Calcium Level 9.1 mg/dL (8.5-10.1) Total Bilirubin 0.5 mg/dL (0.2-1.0) Aspartate Amino Transf (AST/SGOT) 25 U/L (15-37) Alanine Aminotransferase (ALT/SGPT) 21 U/L (14-59) Alkaline Phosphatase 68 U/L (46-116) Total Protein 6.3 g/dL (6.4-8.2) Albumin 2.6 g/dL (3.4-5.0) Albumin/Globulin Ratio 0.7 (1.0-1.7) Assessment/Plan A: MOOKIE P: Embx completed. F/u in clinic in 2 weeks. Problems: MONICA GAITAN Jr, MD Dec 31, 2016 14:44
[2016-12-31] MEDS ORDERED: METOPROLOL SUCC 24HR ER 25 MG TAB.ER.24H. PO ONE (14:45)
--- NOTE | 2016-12-31 17:07 | PDOC ---
PROGRESS NOTES Chief Complaint Chief Complaint Abnormal uterine bleeding ASSESSMENT AND PLAN: 1. AUB: appreciate Dr Perez's help; endometrial bx done. O/P F/U in 2 weeks. 2. Anemia: H/H currently stable. bleeding ongoing. given difficulties with cardiac issues and transfusions, will give add.l unit PRBC tonight 3. CHF: compensated systolic (EF 25-30%). monitor for fluid O/L sx with transfusion. 4. Dispo: prob home in AM History of Present Illness History of Present Illness fatigued, but feels better than yesterday. no CP or SOB Vitals Vitals Vital Signs Date Time Temp Pulse Resp B/P (MAP) Pulse Ox O2 Delivery O2 Flow Rate FiO2 12/31/16 15:00 97.6 68 18 126/69 (88) 98 Room Air 97.6 Physical Exam General: Alert, Oriented X3, Cooperative Heart: Regular rate Lungs: Clear Abdomen: Normal bowel sounds, Soft Labs LABS Laboratory Tests Test 12/30/16 22:35 12/31/16 05:00 White Blood Count 12.9 x10^3/uL (4.0-11.0) 13.0 x10^3/uL (4.0-11.0) Red Blood Count 2.50 x10^6/uL (3.50-5.40) 2.44 x10^6/uL (3.50-5.40) Hemoglobin 7.8 g/dL (12.0-15.5) 7.8 g/dL (12.0-15.5) Hematocrit 23.3 % (36.0-47.0) 23.0 % (36.0-47.0) Mean Corpuscular Volume 93 fL (79-100) 94 fL (79-100) Mean Corpuscular Hemoglobin 31 pg (25-35) 32 pg (25-35) Mean Corpuscular Hemoglobin Concent 34 g/dL (31-37) 34 g/dL (31-37) Red Cell Distribution Width 14.3 % (11.5-14.5) 14.7 % (11.5-14.5) Platelet Count 229 x10^3/uL (140-400) 234 x10^3/uL (140-400) Neutrophils (%) (Auto) 72 % (31-73) Lymphocytes (%) (Auto) 15 % (24-48) Monocytes (%) (Auto) 11 % (0-9) Eosinophils (%) (Auto) 1 % (0-3) Basophils (%) (Auto) 1 % (0-3) Neutrophils # (Auto) 9.3 x10^3uL (1.8-7.7) Lymphocytes # (Auto) 2.0 x10^3/uL (1.0-4.8) Monocytes # (Auto) 1.5 x10^3/uL (0.0-1.1) Eosinophils # (Auto) 0.2 x10^3/uL (0.0-0.7) Basophils # (Auto) 0.1 x10^3/uL (0.0-0.2) Sodium Level 143 mmol/L (136-145) Potassium Level 3.4 mmol/L (3.5-5.1) Chloride Level 103 mmol/L (98-107) Carbon Dioxide Level 32 mmol/L (21-32) Anion Gap 8 (6-14) Blood Urea Nitrogen 10 mg/dL (7-20) Creatinine 0.7 mg/dL (0.6-1.0) Estimated GFR (Cockcroft-Gault) 86.6 BUN/Creatinine Ratio 14 (6-20) Glucose Level 68 mg/dL (70-99) Calcium Level 9.1 mg/dL (8.5-10.1) Total Bilirubin 0.5 mg/dL (0.2-1.0) Aspartate Amino Transf (AST/SGOT) 25 U/L (15-37) Alanine Aminotransferase (ALT/SGPT) 21 U/L (14-59) Alkaline Phosphatase 68 U/L (46-116) Total Protein 6.3 g/dL (6.4-8.2) Albumin 2.6 g/dL (3.4-5.0) Albumin/Globulin Ratio 0.7 (1.0-1.7) JOSELUIS GAUTHIER MD Dec 31, 2016 17:07
[2016-12-31] MEDS: ATORVASTATIN CALCIUM 10 MG TABLET. PO SCH (20:21)
[2017-01-01 03:40] VITALS: BP 92/51
[2017-01-01 04:46] LABS: BASO % 0 % (0-3); EOS % 3 % (0-3); HEMATOCRIT 25.8 % (36.0-47.0); HEMOGLOBIN 8.8 g/dL (12.0-15.5); LYMPH % 15 % (24-48); MEAN CORPUSCULAR HEMOGLOBIN 32 pg (25-35); MEAN CORPUSCULAR HGB CONC 34 g/dL (31-37); MEAN CORPUSCULAR VOLUME 94 fL (79-100); MONO % 9 % (0-9); NEUT % 72 % (31-73); PLATELET COUNT 241 x10^3/uL (140-400); RED BLOOD COUNT 2.74 x10^6/uL (3.50-5.40); RED CELL DISTRIBUTION WIDTH 14.8 % (11.5-14.5); WHITE BLOOD COUNT 12.7 x10^3/uL (4.0-11.0)
[2017-01-01 07:00] VITALS: BP 101/63
[2017-01-01] MEDS: OMEGA-3 FATTY ACIDS/FISH OIL 1,000 MG CAPSULE. PO SCH (08:28)
[2017-01-01] MEDS: BUMETANIDE 1 MG TABLET. PO SCH (08:28)
[2017-01-01] MEDS: DIGOXIN 125 MCG TABLET. PO SCH (08:29)
[2017-01-01] MEDS: ASPIRIN CHEWABLE 81 MG TABLET. PO SCH (08:29)
[2017-01-01] MEDS: AMIODARONE HCL 200 MG TABLET. PO SCH (08:30)
[2017-01-01] MEDS: MULTIVITAMIN with MINERAL TABLET. PO SCH (08:32)
[2017-01-01] MEDS: POTASSIUM CHLORIDE 10 MEQ TABLET.ER. PO SCH (08:32)
[2017-01-01] MEDS: FERROUS SULFATE 325 MG TABLET. PO SCH (08:33)
[2017-01-01] MEDS ORDERED: METOPROLOL SUCC 24HR ER 25 MG TAB.ER.24H. PO SCH (09:00)
[2017-01-01 11:00] VITALS: BP 106/70
--- NOTE | 2017-01-03 10:59 | PATHOLOGY ---
PATHOLOGY REPORT * * * * * * * * FINAL DIAGNOSIS: Endometrial biopsy: - Blood clot containing few strips of endocervical epithelium. (JPM:pit; 01/03/2017) COMMENT: The entire specimen is submitted for histologic evaluation. Microscopic sections reveal blood clot containing a few strips of endocervical epithelium. As such, there is insufficient endometrial tissue for evaluation. (JPM:pit; 01/03/2017) REPORT ELECTRONICALLY SIGNED BY: Kev Morales M.D. DATE/TIME: 01/03/2017 10:58 * * * * * * * * GROSS PATHOLOGY: Received in formalin labeled "Cirilo Almanza," and additionally labeled on the requisition as "endometrial biopsy," are several segments of blood clot admixed with mucoid material measuring 3.0 x 2.9 x 0.5 cm in aggregate dimensions. The specimen is submitted entirely in cassette A1. (TSD; 12/31/2016) INITIAL CPT CODE(S): A; 41648 Professional services performed [place] [facility] [place] [address] Technical services performed by [facility] at [address] [place] [address] [address], [place] [address]. SPECIMEN(S) RECEIVED: A.Endometrial biopsy CLINICAL HISTORY: Abnormal uterine bleeding, vaginal bleeding x3 weeks PATIENT: CIRILO ALMANZA /AGE: 1001/06/1960 (Age: 56) PATIENT #: [id number] ALT CASE #: SPECIMEN COLLECTION DATE: 12/31/2016 SPECIMEN RECEIVED DATE: 12/31/2016 [facility] - [address] [place] [address] - PHONE: [phone] * * * END OF REPORT * * *
== END 2017-01-01 15:30 | disposition home or self-care (01) | DRG 744 ==
LOC: 2 SOUTH 01:39
PROVIDERS: ADMIT Internal Medicine; ATTEND Internal Medicine
PROC: 30233N1 Transfusion of Nonautologous Red Blood Cells into Peripheral Vein, Percutaneous Approach (ICD-10-PCS; principal; 2016-12-30)
PROC: 0UDB7ZX Extraction of Endometrium, Via Natural or Artificial Opening, Diagnostic (ICD-10-PCS; 2016-12-31)
DX: N93.9 Abnormal uterine and vaginal bleeding, unspecified (principal); D62 Acute posthemorrhagic anemia; I11.0 Hypertensive heart disease with heart failure; I42.9 Cardiomyopathy, unspecified; E66.01 Morbid (severe) obesity due to excess calories; I50.22 Chronic systolic (congestive) heart failure; Z68.42 Body mass index [BMI] 45.0-49.9, adult; E78.5 Hyperlipidemia, unspecified; E87.6 Hypokalemia; I48.91 Unspecified atrial fibrillation; Z96.653 Presence of artificial knee joint, bilateral; R32 Unspecified urinary incontinence
CPT/HCPCS: 36415; 80048; 80053; 83735; 85025; 85027; 86850; 86900; 86901; 86920; 94250; 94640; 94760; J7613; P9016; 97116; 97535

== ENCOUNTER 2017-06-01 14:40 | Emergency (ER) | payer OTHER ==
[2017-06-01] MEDS: HYDROcodone/APAP 5/325MG 1 TAB TABLET PO (15:59)
== END 2017-06-01 16:44 | disposition home or self-care (01) ==
LOC: ER 14:40
DX: S16.1XXA Strain of muscle, fascia and tendon at neck level, initial encounter (principal); S09.90XA Unspecified injury of head, initial encounter; I48.91 Unspecified atrial fibrillation; I10 Essential (primary) hypertension; W18.09XA Striking against other object with subsequent fall, initial encounter; Y93.89 Activity, other specified; Y99.8 Other external cause status; Y92.89 Other specified places as the place of occurrence of the external cause
CPT/HCPCS: 70450; 72125; 99284-25

== ENCOUNTER 2017-06-02 09:38 | Day surgery (SDC) | payer OTHER ==
[~2017-06-02 09:38] MED LIST changes: -AMIO200T2 PO; -APIX5TAB PO; -ASPI-482 PO; -ATOR10TA60 PO; -BUME1TAB PO; -DIGO125T PO; -DILT180C29 PO; -FURO40TA4 PO; -HYDR12.58 PO; +HYDROmorphone 2 MG/ML VIAL IV; +LIDOCAINE 1% PF 2 ML VIAL. ID; -METO25TA4 PO; -METO50TA29 PO; +MORPHINE SULFATE 2 MG/ML DISP.SYRIN. IV; -MULT1TAB52 PO; -OMEG-57 PO; +ONDANSETRON PF 4 MG/2 ML VIAL. IV; -POTA10TA5 PO; -PROAIR HFA8.5 GM INH; +PROCHLORPERAZINE 10 MG/2 ML VIAL. IV; -RIVA20TA2 PO; +fentaNYL PF VIAL 100 MCG/2 ML VIAL IV
[2017-06-02] MEDS: IV RINGERS,LACTATED 1000ML 1,000 ML IV ×2 (10:28→13:48)
[2017-06-02] MEDS ORDERED: PROPOFOL 20 ML IV (11:20)
[2017-06-02] MEDS ORDERED: fentaNYL PF VIAL 100 MCG/2 ML VIAL (11:21)
[2017-06-02] MEDS ORDERED: SEVOFLURANE 16 TO 30 MINUTES. IH (12:33)
[2017-06-02] MEDS ORDERED: DEXAMETHASONE SOD PHOS 20 MG/5 ML VIAL. (12:33)
[2017-06-02] MEDS ORDERED: ONDANSETRON PF 4 MG/2 ML VIAL. (12:33)
[2017-06-02] MEDS: ceFAZolin SODIUM 3 GM in IV DEXTROSE 5% 100 ML IV (12:44)
[2017-06-02] MEDS: fentaNYL PF VIAL 100 MCG/2 ML VIAL IV ×2 (13:47→13:59)
[2017-06-02] MEDS ORDERED: oxyCODONE/APAP 5/325 1 TAB TABLET PO (14:30)
== END 2017-06-02 15:02 | disposition home or self-care (01) ==
LOC: SURG 09:38
DX: N84.0 Polyp of corpus uteri (principal); E66.01 Morbid (severe) obesity due to excess calories; Z68.42 Body mass index [BMI] 45.0-49.9, adult; E78.00 Pure hypercholesterolemia, unspecified; I48.91 Unspecified atrial fibrillation; I10 Essential (primary) hypertension; J45.909 Unspecified asthma, uncomplicated; G47.30 Sleep apnea, unspecified; D64.9 Anemia, unspecified
CPT/HCPCS: 58563; J1100; J2405; J2704; J3010

== ENCOUNTER → 2017-08-19 | Outpatient (CLI) | payer OTHER | END | disposition home or self-care (01) | LOC: ECHO 09:37 | DX: I48.2 Chronic atrial fibrillation (principal); I27.20 Pulmonary hypertension, unspecified; I08.1 Rheumatic disorders of both mitral and tricuspid valves | CPT/HCPCS: 93306 ==

== ENCOUNTER → 2018-05-26 | Outpatient (CLI) | payer OTHER ==
[2017-06-02 14:17] VITALS: BP 120/64
[~2018-05-26] MED LIST changes: +ALBU2.5V8 INH; +AMIO200T4 PO; +APIX5TAB PO; +ASPI-482 PO; +ASPI-630 PO; +ATOR10TA60 PO; +BUME1TAB3 PO; +BUME2TAB3 PO; +DIGO125T PO; +DILT180C2 PO; +DILT180C29 PO; +FERR325T14 PO; +FURO40TA4 PO; +HYDR12.58 PO; -HYDROmorphone 2 MG/ML VIAL IV; -LIDOCAINE 1% PF 2 ML VIAL. ID; +METO-247 PO; +METO25TA4 PO; +METO50TA29 PO; -MORPHINE SULFATE 2 MG/ML DISP.SYRIN. IV; +MULT1TAB52 PO; +OMEG-57 PO; +OMEG1CAP6 PO; -ONDANSETRON PF 4 MG/2 ML VIAL. IV; +OXYC1TAB15 PO; +POTA10TA12 PO; -PROCHLORPERAZINE 10 MG/2 ML VIAL. IV; +RIVA20TA2 PO; +VITAMIN B12 PO; -fentaNYL PF VIAL 100 MCG/2 ML VIAL IV
--- NOTE | 2018-05-26 08:56 | RAD ---
DATE: 05/26/2018 EXAM: MAMMO CLEM DEONG LT, BREAST LEFT HISTORY: 6 month follow-up COMPARISON: 11/21/2017 This study was interpreted with the benefit of Computerized Aided Detection (CAD). Breast Density: SCATTERED The breast parenchyma shows scattered fibroglandular densities. Breast parenchyma level B. FINDINGS: 2-D and 3-D tomosynthesis imaging was performed in CC and MLO projections. The lobulated density seen laterally in the left breast on the previous study has regressed and is now only barely visible. This is compatible with a benign etiology. A small smooth oval-shaped nodule located more lateral in the left breast is unchanged. No new or enlarging breast densities are seen. No suspicious microcalcifications are evident. Left breast ultrasound, 05/26/2018: A targeted ultrasound exam of left breast was performed at the level where small probable cysts were delineated on the 11/25/2017 exam. At the 4:00 location approximately 7 cm from the nipple there is a small structure which has the appearance of a septated cyst or cyst cluster. It appears less complex than on the previous study. It is of similar size, measuring approximately 9 mm in greatest diameter. At the 5:00 location approximately 4 cm from the nipple there is a 7 mm cyst which appears to have decreased slightly in size. No new breast abnormality is detected. IMPRESSION: 1. The mammographically visualized left breast nodule has decreased in size compatible with a benign etiology. 2. The sonographically visualized simple and complicated cysts appear stable.. 3. Follow-up bilateral mammography and left breast ultrasound in 6 months is suggested. BI-RADS CATEGORY: 3 PROBABLY BENIGN FINDING(S)-SHORT INTERVAL FOLLOW-UP SUGGESTED RECOMMENDED FOLLOW-UP: 6M 6 MONTH FOLLOW-UP PQRS compliance statement: Patient information was entered into a reminder system with a target due date for the next mammogram. Mammography is a sensitive method for finding small breast cancers, but it does not detect them all and is not a substitute for careful clinical examination. A negative mammogram does not negate a clinically suspicious finding and should not result in delay in biopsying a clinically suspicious abnormality. "Our facility is accredited by the [employer] Mammography Program."
== END | disposition home or self-care (01) ==
LOC: MAMMO 07:18
PROVIDERS: ATTEND Physician Assistant Medical
DX: Z09 Encounter for follow-up examination after completed treatment for conditions other than malignant neoplasm (principal); N63.23 Unspecified lump in the left breast, lower outer quadrant
CPT/HCPCS: 76641; 77065; G0279; 77061

== ENCOUNTER → 2018-11-17 | Outpatient (CLI) | payer OTHER ==
[2017-06-02 14:17] VITALS: BP 120/64
--- NOTE | 2018-11-17 11:41 | CARD ---
MR#: [id number] Date of Study: 11/17/2018 Ordering Physician: COLETTE STONE, Referring Physician: COLETTE STONE, Tech: Tammy Sullivan [facility] APPROVED REPORT EXAM: Two-dimensional and M-mode echocardiogram with Doppler and color Doppler. Other Information Quality : Technically LimitedHR: 110bpm Rhythm : Atrial FibrillationTechnically limited study due to body habitus & heart rate. INDICATION Atrial Fibrillation 2D DIMENSIONS RVDd3.4 (2.9-3.5cm)Left Atrium(2D)4.0 (1.6-4.0cm) IVSd1.0 (0.7-1.1cm)Aortic Root(2D)2.9 (2.0-3.7cm) LVDd5.7 (3.9-5.9cm)LVOT Diameter2.1 (1.8-2.4cm) PWd1.1 (0.7-1.1cm)LVDs4.4 (2.5-4.0cm) FS (%) 23.3 %SV74.1 ml LVEF(%)45.0 (>50%) M-Mode DIMENSIONS Left Atrium(MM)5.62 (2.5-4.0cm)Aortic Root3.40 (2.2-3.7cm) Aortic Valve AoV Peak Sam.145.3cm/sAoV VTI27.9cm AO Peak GR.8.4mmHgLVOT Peak Sam.106.1cm/s AO Mean GR.4mmHgAVA (VMAX)2.63cm2 ZACARIAS (VTI)2.60cm2 Mitral Valve MV E Xwmnffak01.0cm/sMV E Peak Gr.70mmHg MV DECEL [id number] A Jlkofuhz50.1cm/s E/A Ratio4.5 Pulmonary Valve PV Peak Huurawwe035.0cm/s Tricuspid Valve TR P. Aglxgtdr091dw/sRAP [id number] TR Peak Gr.65viGqSPOJ46knHy LEFT VENTRICLE The Left Ventricle is borderline dilated. There is borderline concentric left ventricular hypertrophy . The systolic function is mildly impaired. The Ejection Fraction is 40-45%. There is global hypokine sis of the left ventricle. Tissue Doppler imaging reveals moderate left ventricular diastolic dysfunc tion. RIGHT VENTRICLE The right ventricle is borderline dilated. There is normal right ventricular wall thickness. The righ t ventricular systolic function is normal. ATRIA The left atrium is mildly dilated. The right atrium is mildly dilated. The interatrial septum is inta ct with no evidence for an atrial septal defect or patent foramen ovale as noted on 2-D or Doppler im aging. AORTIC VALVE Not well visualized. Doppler and Color Flow revealed trace aortic regurgitation. There is no signific ant aortic valvular stenosis. There is no aortic valvular vegetation. MITRAL VALVE The mitral valve is normal in structure and function. There is no evidence of mitral valve prolapse. There is no mitral valve stenosis. Doppler and Color-flow revealed mild mitral regurgitation. TRICUSPID VALVE The tricuspid valve is normal in structure and function. Doppler and Color Flow revealed mild tricusp id regurgitation. The PA pressure was estimated at 35 mmHg. There is no tricuspid valve prolapse or v egetation. There is no tricuspid valve stenosis. PULMONIC VALVE The pulmonic valve is not well visualized. GREAT VESSELS The aortic root is normal in size. The ascending aorta is normal in size. The IVC is normal in size a nd collapses >50% with inspiration. PERICARDIAL EFFUSION There is no evidence of significant pericardial effusion. Critical Notification Critical Value: No <Conclusion> The systolic function is mildly impaired. The Ejection Fraction is 40-45%. There is global hypokinesis of the left ventricle. Signed by : Colette Stone, Electronically Approved : 11/17/2018 11:40:22
== END | disposition home or self-care (01) ==
LOC: ECHO 09:29
PROVIDERS: ATTEND Internal Medicine Cardiovascular Disease
DX: I48.91 Unspecified atrial fibrillation (principal); I07.1 Rheumatic tricuspid insufficiency
CPT/HCPCS: 93306

== ENCOUNTER → 2020-01-29 | Outpatient (CLI) | payer OTHER ==
[2017-06-02 14:17] VITALS: BP 120/64
[~2020-01-29] MED LIST changes: -AMIO200T4 PO; +AMIO200T6 PO; -DIGO125T PO; +DIGO125T3 PO; +MULT-445 PO; -MULT1TAB52 PO
--- NOTE | 2020-01-29 14:42 | CARD ---
MR#: [id number] Date of Study: 01/29/2020 Ordering Physician: COLETTE STONE, Referring Physician: COLETTE STONE, Tech: Courtney Melgoza [facility] APPROVED REPORT EXAM: Two-dimensional and M-mode echocardiogram with Doppler and color Doppler. Other Information Quality : Good/morbid obesityHR: 100bpm Rhythm : Afib INDICATION Non-ischemic cardiomyopathy, Afib. 2D DIMENSIONS RVDd3.6 (2.9-3.5cm)IVSd1.0 (0.7-1.1cm) Aortic Root(2D)3.3 (2.0-3.7cm)LVDd5.8 (3.9-5.9cm) LVOT Diameter2.1 (1.8-2.4cm)PWd1.0 (0.7-1.1cm) LVDs5.3 (2.5-4.0cm)FS (%) 8.4 % SV30.6 mlLVEF(%)18.3 (>50%) Aortic Valve AoV Peak Sam.119.3cm/[place] Peak GR.5.7mmHg LVOT Peak Sam.95.2cm/sAVA (VMAX)2.70cm2 Pulmonary Valve PV Peak Vedkzloa78.2cm/s Tricuspid Valve TR P. Cnmsgwdg147br/sRAP [id number] TR Peak Gr.53lsOgJLXX85eyXu LEFT VENTRICLE The Left Ventricle is mildly dilated. There is normal left ventricular wall thickness. The left ventr icular systolic function is moderate to severely decreased. The estimated ejection fraction is 30%. T his study is not accurate for diastolic function assessment due to atrial fibrillation. RIGHT VENTRICLE The right ventricle is normal size. Systolic function is mildly reduced. ATRIA Mild to moderate biatrial enlargement. The interatrial septum is intact with no evidence for an atria l septal defect or patent foramen ovale as noted on 2-D or Doppler imaging. AORTIC VALVE The aortic valve is normal in structure and function. No aortic regurgitation. There is no significan t aortic valvular stenosis. MITRAL VALVE The mitral valve is normal in structure and function. There is moderate to severe mitral regurgitatio n. TRICUSPID VALVE The tricuspid valve is normal in structure and function. There is moderate tricuspid regugitation. Es timated PAP is 35-40mmHg. PULMONIC VALVE The pulmonary valve is normal in structure and function with trivial regurgitation. GREAT VESSELS The aortic root is normal in size. The ascending aorta is normal in size. The IVC is dilated and tiffanie apses <50% with inspiration. PERICARDIAL EFFUSION There is no evidence of significant pericardial effusion. Critical Notification Critical Value: No <Conclusion> The left ventricular systolic function is moderate to severely decreased. The estimated ejection fraction is 30%. Moderate to severe mitral regurgitation. Moderate tricuspid regugitation. Estimated PAP is 35-40mmHg. There is no evidence of significant pericardial effusion. Signed by : David Guillen, Electronically Approved : 01/29/2020 14:42:21
== END ==
LOC: ECHO 10:54
PROVIDERS: ATTEND Internal Medicine Cardiovascular Disease
DX: I08.8 Other rheumatic multiple valve diseases (principal); I42.9 Cardiomyopathy, unspecified
CPT/HCPCS: 93306